=== PATIENT | male | born 1995 | race Caucasian/White ===

== ENCOUNTER 2020-06-29 18:36 | Emergency (ER) | payer BC, SELFPAY ==
[2020-06-29 19:08] VITALS: BP 128/69; PULSE 90; RESP 16; TEMP 36.3; O2SAT 95; BMI 26.4
[2020-06-29 20:39] VITALS: BP 126/86; PULSE 90; RESP 16; O2SAT 96
--- NOTE | 2020-06-29 20:52 | ED_ITS ---
HPI - Wound/Laceration General: Chief Complaint: Wound/Laceration Stated Complaint: Lip lac Time Seen by Provider: 06/29/20 20:27 Source: patient Mode of arrival: ambulatory Limitations: no limitations History of Present Illness: HPI narrative: 24-year-old [place]. He has a small laceration to the inner lip and outer lip. Denies any loss of consciousness. Denies headache. He is up-to-date on his tetanus. Denies any pain currently. Associated symptoms: Denies chills, fever(s), nausea or vomiting Review of Systems Const: Denies: fever(s), chills, body aches or change in appetite Eyes: Denies: blurry vision or eye discomfort ENMT: Denies: throat pain or dental pain Card: Denies: chest pain Resp: Denies: dyspnea GI: Denies: abdominal pain, nausea, vomiting or diarrhea : Denies: dysuria Musc: Denies: neck pain or back pain Skin/Breast: Denies: rash Neuro: Denies: headache(s) Psych: Denies: depression Edmund/Lymph: Denies: easy bruising All/Imm: Denies: urticaria Physical Exam Const: COMMON NORMALS: no acute distress, patient oriented x3 and healthy appearing HENMT: COMMON NORMALS: normocephalic and atraumatic HEAD & SCALP: normocephalic and atraumatic OTHER: Very small less than 1 cm laceration to the upper lip that does not involve the vermilion border. Slight laceration on the inner portion of the upper lip as well. Does not appear to be through and through and the inner lip laceration is not gaping. He has an abrasion to his chin as well Eye: COMMON NORMALS: Equal, round and reactive pupils present and EOMs intact bilaterally PUPIL: Yes Equal, round and reactive pupils present Neck/C-Spine: COMMON NORMALS: full ROM and supple Chest: COMMONS NORMALS: normal inspection of the chest and normal palpation of entire chest wall Resp: COMMON NORMALS: normal respiratory effort, No retractions, No use of accessory muscles and clear to auscultation bilaterally AUSCULTATION: clear to auscultation bilaterally Cardio: COMMON NORMALS: regular rate, regular rhythm and No murmurs present (Cardio) RATE: regular rate RHYTHM: regular rhythm GI: COMMON NORMALS: Normal to inspection, nondistended, normoactive bowel sounds present, Soft to palpation, non-tender and no masses PALPATION: Yes Soft to palpation Extremity: COMMON NORMALS: normal to inspection and full ROM Neuro: COMMON NORMALS: patient oriented x3, moves all extremities and no focal motor deficits Psych: COMMON NORMALS: mental status grossly normal, Normal thought process present and cooperative THOUGHT PROCESS: Normal thought process present Skin: COMMON NORMALS: no rashes or lesions noted and no wounds GENERAL SKIN EXAM: no rashes or lesions noted Procedures Laceration Laceration 1: Site: lip Size (cm): 0.5 Description: linear Depth: simple, single layer Skin layer closed with: other (dermabond) Course Vital Signs: Vital signs: Vital Signs Temperature 97.3 F L 06/29/20 19:08 Pulse Rate 90 06/29/20 20:39 Respiratory Rate 16 06/29/20 20:39 Blood Pressure 126/86 06/29/20 20:39 Pulse Oximetry 96 06/29/20 20:39 MDM - Wound/Laceration MDM Narrative: Medical decision making narrative: Patient presents here with a minor lip laceration that was repaired with tissue adhesive. The inner lip does not require sutures. He has no signs of major head injury. He is stable for discharge and return if worsening. Discharge Plan Discharge Patient Disposition: Home Clinical Impression: Laceration Condition: Stable Discharge Orders: Discharge ED (Routine); Ordered 06/29/20 Ordered By: Tania Mcgill Discharge Diet: Advance as tolerated Discharge Activity: Resume usual activity Patient Instructions: Laceration (ED) Coding Level of Care Code ED Volunteer Services Manager for Cholo Wagner
== END 2020-06-29 20:44 | disposition home or self-care (01) ==
PROVIDERS: Emergency Provider Emergency Medicine
DX: S01.511A Laceration without foreign body of lip, initial encounter (principal); W22.8XXA Striking against or struck by other objects, initial encounter; Y92.828 Other wilderness area as the place of occurrence of the external cause
CPT/HCPCS: 12011; 99281